=== PATIENT | male | born 1995 | race African-American/Black ===

== ENCOUNTER 2017-07-04 13:21 | Emergency (ER) | payer SELFPAY ==
[~2017-07-04] VITALS: Wt 91.0 kg
[2017-07-04 15:20] LABS: BASOPHILS % 0.3 % (0.0-2.0); EOSINOPHILS % 0.3 % (0.0-7.0); HEMATOCRIT 46.9 % (42.0-52.0); HEMOGLOBIN 16.1 g/dl (14.0-18.0); LYMPHOCYTES # 1.5 10^3/ul (0.8-2.9); LYMPHOCYTES % 12.2 % (15.0-51.0); MEAN CORPUSCULAR HEMOGLOBIN 31.6 pg (29.0-33.0); MEAN CORPUSCULAR HGB CONC 34.3 g/dl (32.0-37.0); MEAN CORPUSCULAR VOLUME 92.1 fl (82.0-101.0); MEAN PLATELET VOLUME 9.9 fl (7.4-10.4); MONOCYTE # 0.8 10^3/ul (0.3-0.9); MONOCYTES % 6.4 % (0.0-11.0); NEUTROPHIL # 9.6 10^3/ul (1.6-7.5); NEUTROPHILS % 80.5 % (39.0-77.0); PLATELET COUNT 267 10^3/UL (140-415); RED BLOOD COUNT 5.09 10^6/ul (4.70-6.10); WHITE BLOOD COUNT 11.9 10^3/ul (4.8-10.8)
[2017-07-04] MEDS ORDERED: SOD CHLORIDE 0.9% 1,000 ML IV ONE (15:30)
[2017-07-04 15:47] LABS: ALBUMIN 3.9 g/dl (3.3-4.9); ALBUMIN/GLOBULIN RATIO 1.44; BILIRUBIN,INDIRECT 1.5 mg/dl (0-1.1); BILIRUBIN,TOTAL 1.5 mg/dl (0.2-1.3); CALCIUM 9.4 mg/dl (8.4-10.2); CREATININE 1.1 mg/dl (0.61-1.24); POTASSIUM 3.7 mmol/L (3.5-5.1); TOTAL PROTEIN 6.6 g/dl (6.1-8.1)
--- NOTE | 2017-07-04 16:05 | ERD ---
ER Documentation Chief Complaint Date/Time DATE: 07/04/17 TIME: 16:04 Chief Complaint PT BIB AMBULANCE C/O DIZZINESS AFTER DONATING PLASMA, AAOX4 HPI This is a 22-year-old male presents to the ER stating that he began to feel dizzy and almost passed out after donating plasma earlier today at 12:30 PM. Patient denies any chest pain or shortness of breath. He denies any recent cough or cold symptoms. He does not have any nausea vomiting or diarrhea he denies any fevers. Patient states he feels slightly better since being the ER. ROS 12 point review of systems was done, all negative except per HPI. Allergies Allergies: Coded Allergies: No Known Allergy (Unverified , 07/04/17) PMhx/Soc Medical and Surgical Hx: pt denies Medical Hx, pt denies Surgical Hx Hx Alcohol Use: No Hx Substance Use: No Hx Tobacco Use: No Physical Exam Vitals Vital Signs Date Time Temp Pulse Resp B/P Pulse Ox O2 Delivery O2 Flow Rate FiO2 07/04/17 13:32 97.5 58 17 121/52 98 Physical Exam GENERAL: The patient is well developed and appropriate for usual state of health , in no apparent distress. HEENT: Atraumatic. CHEST: Clear to auscultation bilaterally. There are no rales, wheezes or rhonchi. HEART: Regular rate and rhythm. No murmurs, clicks, rubs or gallops. NEURO: Alert and oriented. Cranial nerves II through XII are intact. Motor strength in all 4 extremities with 5/5 strength. Sensation grossly intact. Normal speech and gait. Negative Rhomberg. +2 DTRs. SKIN: There is no apparent rash or petechia. The skin is warm and dry. Result Diagram: 07/04/17 1510 07/04/17 1510 Results 24 hrs Laboratory Tests Test 07/04/17 15:10 White Blood Count 11.910^3/ul Red Blood Count 5.0910^6/ul Hemoglobin 16.1g/dl Hematocrit 46.9% Mean Corpuscular Volume 92.1fl Mean Corpuscular Hemoglobin 31.6pg Mean Corpuscular Hemoglobin Concent 34.3g/dl Red Cell Distribution Width 12.0% Platelet Count 14578^3/UL Mean Platelet Volume 9.9fl Neutrophils % 80.5% Lymphocytes % 12.2% Monocytes % 6.4% Eosinophils % 0.3% Basophils % 0.3% Nucleated Red Blood Cells % 0.0/100WBC Neutrophils # 9.610^3/ul Lymphocytes # 1.510^3/ul Monocytes # 0.810^3/ul Eosinophils # 0.010^3/ul Basophils # 0.010^3/ul Nucleated Red Blood Cells # 0.010^3/ul Sodium Level 140mmol/L Potassium Level 3.7mmol/L Chloride Level 102mmol/L Carbon Dioxide Level 28mmol/L Anion Gap 14 Blood Urea Nitrogen 16mg/dl Creatinine 1.10mg/dl Glucose Level 94mg/dl Calcium Level 9.4mg/dl Total Bilirubin 1.5mg/dl Direct Bilirubin 0.00mg/dl Indirect Bilirubin 1.5mg/dl Aspartate Amino Transf (AST/SGOT) 39IU/L Alanine Aminotransferase (ALT/SGPT) 70IU/L Alkaline Phosphatase 54IU/L Total Protein 6.6g/dl Albumin 3.9g/dl Globulin 2.70g/dl Albumin/Globulin Ratio 1.44 Current Medications Medications (Trade) Dose Ordered Sig/Victorino Route PRN Reason Start Time Stop Time Status Last Admin Dose Admin Sodium Chloride (NS) 1,000 ml @ 1,000 mls/hr Q1H ONCE IV 07/04/17 15:30 07/04/17 16:29 07/04/17 15:26 Procedures/MDM This is a 22-year-old male presents to the ER stating he was dizzy and almost passed out while donating plasma, the likely vasovagal reaction. There is no evidence of anemia or electrolyte abnormalities. I did give patient fluids in the ER he felt significantly better. Patient stated he would like to go home since he felt much better. Patient is to follow-up with his primary care doctor within 1-2 days return to ER sooner if symptoms worsen. My medical decision making sure with the patient understands and agrees with plan. Departure Diagnosis: Primary Impression: Dizziness Condition: Stable Patient Instructions: Dizziness, Unk Cause Additional Instructions: Call your primary care doctor TOMORROW for an appointment during the next 1-2 days.See the doctor sooner or return here if your condition worsens before your appointment time. TROY GRANADOS Jul 04, 2017 16:05
[2017-07-04 16:23] VITALS: BP 122/64; PULSE 66; RESP 20; TEMP 97.7
== END 2017-07-04 16:24 | disposition home or self-care (01) ==
LOC: FTE 13:21
DX: R42 Dizziness and giddiness (principal)
CPT/HCPCS: 80053; 85025; 99284; J7030